=== PATIENT | female | born 1975 | race Caucasian/White ===

== ENCOUNTER 2017-12-06 23:26 | Emergency (ER) | payer OTHER ==
--- NOTE | 2017-12-06 23:44 | CPEKG ---
Heart Rate: 77 RR Interval: 779 P-R Interval: 160 QRSD Interval: 88 QT Interval: 400 QTC Interval: 453 P Elmo: 48 QRS Elmo: 15 T Wave Elmo: 36 EKG Severity - NORMAL ECG - EKG Impression: SINUS RHYTHM Electronically Signed By: Shaheed Patten 07-Dec-2017 19:12:54
[2017-12-06] MEDS ORDERED: ASPIRIN 81 MG CHEWABLE TAB PO ONE (23:46)
[2017-12-06 23:50] LABS: PLATELET COUNT 256 10^3/uL (150-400)
--- NOTE | 2017-12-07 00:08 | EDPHY ---
H & P Stated Complaint: CP Time Seen by Provider: 12/06/17 23:34 HPI/ROS: HPI The patient presents with chest pain which began at about 930 tonight lasting for an hour and a half and now subsiding. The patient went out to dinner and ate a fatty meal including pizza. She went home and had inter core. After that she had slow onset of constant mid and left-sided chest pain which she rates as moderate to severe. It felt like an burning and tight pain. It did radiate toward her back and left arm she believes. She then started doing some research on the Internet and subsequently developed pain in her jaw and some shortness of breath. She has not had any nausea or vomiting, dizziness or diaphoresis. She says she occasionally has mild chest pain, though this is the most severe episode. She does have a history of a prior T6 compression fracture 3 years ago and this sometimes causes back and chest pain.. REVIEW OF SYSTEMS Constitutional: No fever, no chills. Eyes: No discharge. ENT: No sore throat. Cardiovascular: No chest pain, no palpitations. Respiratory: No cough, no shortness of breath. Gastrointestinal: No abdominal pain, no vomiting. Genitourinary: No hematuria. Musculoskeletal: No back pain. Skin: No rashes. Neurological: No headache. PMHx: History of T6 compression fracture 3 years ago, history of drug overdose in 2002 requiring several week ICU stay, status post cholecystectomy, history of pancreatitis Soc Hx: No alcohol, no tobacco FHx: Maternal grandmother with [place], age unknown PHYSICAL General Appearance: Alert, no distress Eyes: Pupils equal and round no pallor or injection ENT, Mouth: Mucous membranes moist Respiratory: There are no retractions, lungs are clear to auscultation Cardiovascular: Regular rate and rhythm Gastrointestinal: Abdomen is soft and non-tender, no masses, bowel sounds normal Neurological: A&O, moves all extremities Skin: Warm and dry, no rashes Musculoskeletal: Neck is supple non tender Extremities: symmetrical, full range of motion Psychiatric: Patient is oriented X 3, there is no agitation Source: Patient Exam Limitations: No limitations - Personal History LMP (Females 10-55): 1-7 Days Ago Current Tetanus/Diphtheria Vaccine: Unsure Current Tetanus Diphtheria and Acellular Pertussis (TDAP): Unsure - Medical/Surgical History Hx Asthma: No Hx Chronic Respiratory Disease: No Hx Diabetes: No Hx Cardiac Disease: No Hx Renal Disease: No Hx Cirrhosis: No Hx Alcoholism: No Hx HIV/AIDS: No Hx Splenectomy or Spleen Trauma: No - Social History Smoking Status: Never smoked Constitutional: Initial Vital Signs Temperature (C) 36.6 C 12/06/17 23:28 Heart Rate 82 12/06/17 23:28 Respiratory Rate 16 12/06/17 23:28 Blood Pressure 116/72 12/06/17 23:28 O2 Sat (%) 98 12/06/17 23:28 O2 Delivery Mode Room Air Allergies/Adverse Reactions: acetaminophen [From Percocet] Allergy (Verified 12/06/17 23:30) oxycodone [From Percocet] Allergy (Verified 12/06/17 23:30) vitamin K2 Allergy (Verified 12/06/17 23:30) Medical Decision Making - Diagnostics EKG Interpretation: EKG: Complete interpretation has been separately recorded in the [employer] archive. Summary impression: Normal sinus rhythm, no ST segment change Imaging Results: Chest x-ray two view shows no infiltrate, no cardiomegaly, no effusion, interpreted by me, radiology interpretation is pending. Differential Diagnosis: This is a 42-year-old female with history of cholecystectomy, pancreatitis, who presents from home with 1 and 0.5 hr of chest pain which occurred just prior to arrival, symptoms now have mostly subsided. On exam, vital signs are normal, I will check basic labs. Differential diagnosis includes ACS, aortic dissection though unlikely given young age and no risk factors, PE is a consideration, however she does not have any risk factors. Other possibilities include pancreatitis, gastritis, stress response. EKG, chest x-ray, labs including troponin, lipase were all unremarkable. Patient felt well. Her vital signs remained normal. On reassessment, she felt well enough to go home. I will discharge her, however I have encouraged her to see a primary care doctor for further evaluation if her pain continues. She is in agreement with this plan. We have discussed return precautions to the emergency room including ongoing or any worsening chest pain. - Data Points Laboratory Results: Laboratory Results 12/06/17 23:40 12/06/17 23:40 12/06/17 12/06/17 12/06/17 23:40 23:40 23:40 WBC 9.48 10^3/uL 10^3/uL (3.80-9.50) RBC 4.50 10^6/uL 10^6/uL (4.18-5.33) Hgb 12.9 g/dL g/dL (12.6-16.3) Hct 38.8 % % (38.0-47.0) MCV 86.2 fL fL (81.5-99.8) MCH 28.7 pg pg (27.9-34.1) MCHC 33.2 g/dL g/dL (32.4-36.7) RDW 13.0 % % (11.5-15.2) Plt Count 256 10^3/uL 10^3/uL (150-400) MPV 11.1 fL fL (8.7-11.7) Neut % (Auto) 55.3 % % (39.3-74.2) Lymph % (Auto) 35.1 % % (15.0-45.0) [place] % (Auto) 6.6 % % (4.5-13.0) Eos % (Auto) 1.7 % % (0.6-7.6) Baso % (Auto) 0.7 % % (0.3-1.7) Nucleat RBC Rel Count 0.0 % % (0.0-0.2) Absolute Neuts (auto) 5.23 10^3/uL 10^3/uL (1.70-6.50) Absolute Lymphs (auto) 3.33 10^3/uL H 10^3/uL (1.00-3.00) Absolute Monos (auto) 0.63 10^3/uL 10^3/uL (0.30-0.80) Absolute Eos (auto) 0.16 10^3/uL 10^3/uL (0.03-0.40) Absolute Basos (auto) 0.07 10^3/uL 10^3/uL (0.02-0.10) Absolute Nucleated RBC 0.00 10^3/uL 10^3/uL (0-0.01) Immature Gran % 0.6 % % (0.0-1.1) Immature Gran # 0.06 10^3/uL 10^3/uL (0.00-0.10) Sodium 140 mEq/L mEq/L (135-145) Potassium 3.7 mEq/L mEq/L (3.5-5.2) Chloride 103 mEq/L mEq/L (97-110) Carbon Dioxide 26 mEq/l mEq/l (22-31) Anion Gap 11 mEq/L mEq/L (8-16) BUN 18 mg/dL mg/dL (7-23) Creatinine 0.9 mg/dL mg/dL (0.6-1.0) Estimated GFR > 60 Glucose 96 mg/dL mg/dL (70-100) Calcium 9.7 mg/dL mg/dL (8.5-10.4) Total Bilirubin 0.5 mg/dL mg/dL (0.1-1.4) Conjugated Bilirubin 0.4 mg/dL mg/dL (0.0-0.5) Unconjugated Bilirubin 0.1 mg/dL mg/dL (0.0-1.1) AST 34 IU/L IU/L (14-46) ALT 52 IU/L IU/L (9-52) Alkaline Phosphatase 83 IU/L IU/L (38-126) Troponin I < 0.012 ng/mL ng/mL (0.000-0.034) Total Protein 7.5 g/dL g/dL (6.3-8.2) Albumin 4.2 g/dL g/dL (3.5-5.0) Lipase 150 IU/L IU/L (23-300) Medications Given: Discontinued Medications Aspirin (Aspirin) 324 mg PO EDNOW ONE Stop: 12/06/17 23:47 Last Admin: 12/06/17 23:52 Dose: 324 mg Departure - Departure Disposition: Home, Routine, Self-Care Clinical Impression: Chest pain Qualifiers: Chest pain type: unspecified Qualified Code(s): R07.9 - Chest pain, unspecified Condition: Good Instructions: Chest Pain (ED) Additional Instructions: I recommend you monitor your symptoms at home and if they get worse in any way, you should return to the emergency room. We have evaluated you for serious and life-threatening causes of chest pain today in the emergency department and her testing appears normal. However, the cause of your pain is not entirely clear. This could be related to inflammation of the stomach called gastritis or possibly anxiety. I would recommend that you follow up with a primary care doctor in the next 1 or 2 weeks for recheck. I have given you the name of a doctor below. Referrals: Charlotte Amos MD [[facility] [place] Primary Care Provider] - As per Instructions
[2017-12-07 00:52] VITALS: BP 102/67
== END 2017-12-07 01:02 | disposition home or self-care (01) ==
DX: R07.9 Chest pain, unspecified (principal)